=== PATIENT | female | born 1945 | race Asian ===

== ENCOUNTER 2016-11-22 23:29 | Emergency (ER) | payer OTHER ==
[~2016-11-22 23:29] MED LIST: A/B OTIC15 ML; ASPI-COR81 M3 PO; ATIVAN1 MG PO; COZAAR100 MG PO; MEVACOR40 MG PO; OMEPRAZOLE DR20 M1 PO; PLA75 PO; VERAPAMIL HCL240 MG PO
[2016-11-23 01:33] VITALS: BP 132/68
== END 2016-11-23 01:33 | disposition home or self-care (01) ==
LOC: ED 23:29
DX: R07.89 Other chest pain (principal); F41.9 Anxiety disorder, unspecified; I10 Essential (primary) hypertension; Z79.899 Other long term (current) drug therapy; Z88.0 Allergy status to penicillin

== ENCOUNTER 2017-12-21 10:26 | Observation (INO) | payer OTHER ==
[~2017-12-21] VITALS: Ht 160 cm; Wt 69.7 kg
[~2017-12-21 10:26] MED LIST changes: -PLA75 PO
[2017-12-21 12:25] LABS: BASOPHIL % 0.5 % (0-2); PLATELET COUNT 247 x10^3mcL (130-400); RED CELL DISTRIBUTION WIDTH 12.5 % (11.5-14.5)
[2017-12-21 12:32] LABS: CALCIUM 8.9 mg/dL (8.5-10.1); CARBON DIOXIDE 31.4 mmol/L (21-32); CHLORIDE SERUM 104 mmol/L (98-107); CREATININE SERUM 0.8 mg/dL (0.6-1.0); GLUCOSE SERUM 91 mg/dL (74-106); POTASSIUM SERUM 3.6 mmol/L (3.5-5.1); SODIUM SERUM 138 mmol/L (136-145)
[2017-12-21 12:35] LABS: ALBUMIN 3.4 g/dL (3.4-5.0); ALKALINE PHOSPHATASE 65 U/L (46-116); ALT/SGPT 28 U/L (14-59); AST/SGOT 19 U/L (15-37); BILIRUBIN TOTAL 0.24 mg/dL (0.20-1.00); CHOLESTEROL 174 mg/dL (<200); CHOLESTEROL/HDL RATIO 3.6; HDL CHOLESTEROL 49 mg/dL (40-60)
[2017-12-21 12:41] LABS: TRIGLYCERIDES 319 mg/dL (<150)
[2017-12-21 12:44] LABS: T3 TOTAL 0.87 ng/mL
[2017-12-21] MEDS ORDERED: XANAX0.25 MG PO (13:36)
[2017-12-21] MEDS ORDERED: ASPIR 8181 MG PO (13:36)
[2017-12-21 14:11] LABS: FREE T4 1.09 ng/dL (0.76-1.46); FREE THYROXINE INDEX 3.9 ug/dL (1.4-4.5); T4(THYROXINE) 10.5 ug/dL (4.7-13.3)
[2017-12-21 14:49] LABS: MAGNESIUM 2.1 mg/dL (1.8-2.4); PHOSPHOROUS 3.7 mg/dL (2.5-4.9)
[2017-12-21 14:52] VITALS: BP 124/69
[2017-12-21 14:59] VITALS: Ht 160 cm; Wt 69.7 kg
[2017-12-21 17:07] VITALS: BP 113/56
[2017-12-21 19:21] LABS: AMPHETAMINE QUAL UR NONE DETECTED (NEG <=1000)
[2017-12-21 20:58] VITALS: BP 114/60
[2017-12-21 23:07] VITALS: BP 118/53
[2017-12-21 23:35] VITALS: BP 108/60
[2017-12-22] VITALS (7 sets, daily range): BP systolic 110–141; BP diastolic 62–76
[2017-12-22 04:32] LABS: BASOPHIL % 0.6 % (0-2); PLATELET COUNT 225 x10^3mcL (130-400); RED CELL DISTRIBUTION WIDTH 12.9 % (11.5-14.5)
[2017-12-22 04:42] LABS: CALCIUM 8.6 mg/dL (8.5-10.1); CARBON DIOXIDE 28.4 mmol/L (21-32); CHLORIDE SERUM 108 mmol/L (98-107); CREATININE SERUM 0.9 mg/dL (0.6-1.0); GLUCOSE SERUM 103 mg/dL (74-106); MAGNESIUM 1.9 mg/dL (1.8-2.4); PHOSPHOROUS 4.3 mg/dL (2.5-4.9); POTASSIUM SERUM 3.2 mmol/L (3.5-5.1); SODIUM SERUM 141 mmol/L (136-145)
[2017-12-22] MEDS ORDERED: PLA75 PO (11:39)
[2017-12-22] MEDS ORDERED: COL100 PO (12:22)
[2017-12-22] MEDS ORDERED: METHOCARBAMOL500 MG PO (12:22)
== END 2017-12-22 14:59 | disposition home or self-care (01) | DRG 206 ==
LOC: ED 10:26 → DU 13:31
PROVIDERS: Emergency Medicine; Family Medicine
DX: M94.0 Chondrocostal junction syndrome [Tietze] (principal); I10 Essential (primary) hypertension; K21.9 Gastro-esophageal reflux disease without esophagitis; R73.03 Prediabetes; E78.1 Pure hyperglyceridemia; Z79.82 Long term (current) use of aspirin; Z68.27 Body mass index [BMI] 27.0-27.9, adult
CPT/HCPCS: 83880; 84439; G0378; J7030